=== PATIENT | female | born 1975 | race Two or more races ===

== ENCOUNTER 2018-10-22 21:05 | Emergency (ER) | payer SELFPAY, MEDICAID ==
[2018-10-22 23:25] LABS: URINE BLOOD (Dip) POC Trace-intact (NEGATIVE); URINE GLUCOSE (Dip) POC Negative (NEGATIVE); URINE KETONES (Dip) POC Negative (NEGATIVE); URINE LEUKOCYTE EST (Dip) POC Negative (NEGATIVE); URINE NITRITE (Dip) POC Negative (NEGATIVE); URINE TOTAL PROTEIN POC Trace (NEGATIVE)
[2018-10-22 23:25] LABS: URINE PH (Dip) POC 5.5 (5.0-8.5)
== END 2018-10-23 01:17 | disposition home or self-care (01) ==
LOC: FTE 10-23 01:17
DX: R10.2 Pelvic and perineal pain (principal)
CPT/HCPCS: 76856; 81003; 81025; 99284-25